=== PATIENT | female | born 1980 | race Caucasian/White ===

== ENCOUNTER 2017-03-22 13:19 | Emergency (ER) | payer OTHER ==
[~2017-03-22 13:19] MED LIST: OMEP20TA39 PO; OXYC1SOL5 PO; PREN0.01 PO; ZOLO20CO PO
[2017-03-22 13:21] VITALS: BP 155/91; PULSE 101; RESP 15; TEMP 98.9; O2SAT 97
[2017-03-22 15:16] LABS: BLOOD, URINE SMALL (NEG); COMMENT (UR) CULT NOT INDICATED; CULTURE IF INDICATED CULT NOT INDICATED; GLUCOSE,URINE NEG (NEG); KETONE, URINE 10 mg/dL (NEG); NITRITE,URINE NEG (NEG); PH, URINE 5.5 (5.0-8.5); URINE COLOR YELLOW (YELLW/STRAW)
[2017-03-22 15:16] LABS: AUTOMATED NEUTROPHIL # 7.3 TH/MM3 (1.8-7.7); BASOPHIL % 0.3 % (0.0-2.0); EOSINOPHIL # 0.2 TH/MM3 (0-0.4); EOSINOPHIL % 1.8 % (0.0-4.0); HEMATOCRIT 42.6 % (35.0-46.0); HEMO FLAGS DIFF FINAL; LYMPH % 22.6 % (9.0-44.0); LYMPHOCYTE # 2.4 TH/MM3 (1.0-4.8); MEAN CELL VOLUME 87.3 FL (80.0-100.0); MEAN CORPUSCULAR HEMOGLOBIN 28.8 PG (27.0-34.0); MEAN CORPUSCULAR HGB CONC 32.9 % (32.0-36.0); MONO % 5.6 % (0.0-8.0); NEUT % 69.7 % (16.0-70.0); PLATELET COUNT 347 TH/MM3 (150-450); RED BLOOD COUNT 4.88 MIL/MM3 (4.00-5.30); RED CELL DISTRIBUTION WIDTH 13.1 % (11.6-17.2); WHITE BLOOD COUNT 10.4 TH/MM3 (4.0-11.0)
[2017-03-22 15:37] LABS: BETA HCG QUANT 10860 MIU/ML (0-5)
--- NOTE | 2017-03-22 17:42 | RADRPT ---
EXAM DATE/TIME: 03/22/2017 16:43 [place] COMPARISON: No previous studies available for comparison. INDICATIONS : Vaginal bleeding. . LAB(S): [facility] MEDICAL HISTORY : . SURGICAL HISTORY : section. ENCOUNTER: Initial ACUITY: 1 day PAIN SCORE: 3/10 LOCATION: Bilateral pelvis MEASUREMENTS: UTERUS: 8.4 x 4.4 x 7.2 cm ENDOMETRIAL STRIPE: 15 mm RIGHT OVARY: 3.8 x 2.0 x 2.7 cm LEFT OVARY: 2.7 x 1.6 x 1.3 cm FREE FLUID: Yes cul-de-sac, right ovary. CROWN RUMP LENGTH: 0.2 cm = 5 WKS 5 DAYS FHR: 98 BPM FINDINGS: Ultrasound of the pelvis via transabdominal transvaginal approach demonstrates a single viable intrau terine with a crown-rump length of 2 small foci in weight with a yolk sac identified corres ponding to less than a 5 week gestation. Cardiac activity is identified at 98 beats per minute. A sma ll amount of fluid is present within the pelvis within the physiologic range. Examination of the right ovary demonstrates no abnormality. Examination of the left ovary demonstrates no abnormality. CONCLUSION: 1. Intrauterine of less than 5 weeks Mao Capps MD on March 22, 2017 at 17:39 Board Certified Radiologist. This report was verified electronically.
--- NOTE | 2017-03-22 18:16 | PD ---
HPI Chief Complaint: Related Problem Time Seen by Provider: 16:12 Travel History International Travel<30 days: No Contact w/Intl Traveler<30days: No Traveled to known affect area: No History of Present Illness HPI 36-year-old female here for evaluation of vaginal bleeding and positive home test. Last LMP 03/01/17. Patient reports vaginal bleeding on 03/15 for 2 days then spontaneously resolved. She is not currently bleeding. She denies abdominal pain or cramping. She had a positive home test today. Patient is O+. She is followed by Dr. Cabezas. At the time she currently has no pain. PFSH Past Medical History Medical History: Denies Significant Hx ?: : 1 Para: 1 Social History Alcohol Use: Yes (on occasion) Tobacco Use: No Substance Use: No Allergies-Medications (Allergen,Severity, Reaction): Coded Allergies: naproxen (Unverified Allergy, Unknown, Nausea/Vomiting, 01/20/17) Reported Meds & Prescriptions Reported Meds & Active Scripts Active Oxycodone/Acetaminophen 5 mg/325 mg 5 mg/325 mg Tab 2 Tab PO Q4H PRN Reported Hm Omeprazole (Omeprazole) 20 Mg Tab 20 Mg PO Vit ( Plus) (Prenat Multivit/[place]/Iron/Folic Ac) Tab 1 Tab PO Zoloft (Sertraline HCl) 20 Mg/Ml Con 25 Mg PO Review of Systems Except as stated in HPI: all other systems reviewed are Neg Physical Exam Narrative GENERAL: Alert well-appearing female in no acute distress SKIN: Warm and dry. HEAD: Normocephalic. EYES: No scleral icterus. No injection or drainage. NECK: Supple, trachea midline. No JVD or lymphadenopathy. CARDIOVASCULAR: Regular rate and rhythm without murmurs, gallops, or rubs. RESPIRATORY: Breath sounds equal bilaterally. No accessory muscle use. GASTROINTESTINAL: Abdomen soft, non-tender, nondistended. Data Data Last Documented VS Orders Orders Urinalysis - C+S If Indicated (03/22/17 14:08) Ed Urine Pregnancytest Poc (03/22/17 14:08) Beta Hcg (Quant/Titer) (03/22/17 14:08) Complete Blood Count With Diff (03/22/17 14:08) Us Pelvis (Ques Pr/Ect)W Trans (03/22/17 ) Ed Discharge Order (03/22/17 18:18) Labs Laboratory Tests Test 03/22/17 14:40 03/22/17 14:45 White Blood Count 10.4 TH/MM3 Red Blood Count 4.88 MIL/MM3 Hemoglobin 14.0 GM/DL Hematocrit 42.6 % Mean Corpuscular Volume 87.3 FL Mean Corpuscular Hemoglobin 28.8 PG Mean Corpuscular Hemoglobin Concent 32.9 % Red Cell Distribution Width 13.1 % Platelet Count 347 TH/MM3 Mean Platelet Volume 8.1 FL Neutrophils (%) (Auto) 69.7 % Lymphocytes (%) (Auto) 22.6 % Monocytes (%) (Auto) 5.6 % Eosinophils (%) (Auto) 1.8 % Basophils (%) (Auto) 0.3 % Neutrophils # (Auto) 7.3 TH/MM3 Lymphocytes # (Auto) 2.4 TH/MM3 Monocytes # (Auto) 0.6 TH/MM3 Eosinophils # (Auto) 0.2 TH/MM3 Basophils # (Auto) 0.0 TH/MM3 CBC Comment DIFF FINAL Differential Comment Human Chorionic Gonadotropin, Quant 44849 MIU/ML Urine Color YELLOW Urine Turbidity CLEAR Urine pH 5.5 Urine Specific [place] 1.017 Urine Protein NEG mg/dL Urine Glucose (UA) NEG mg/dL Urine Ketones 10 mg/dL Urine Occult Blood SMALL Urine Nitrite NEG Urine Bilirubin NEG Urine Urobilinogen LESS THAN 2.0 MG/DL Urine Leukocyte Esterase NEG Urine RBC 1 /hpf Urine WBC LESS THAN 1 /hpf Microscopic Urinalysis Comment CULT NOT INDICATED MDM Medical Decision Making Medical Screen Exam Complete: Yes Emergency Medical Condition: Yes Differential Diagnosis , threatened , ectopic Narrative Course 36-year-old female here for evaluation of vaginal bleeding and positive home test. Last LMP 03/01/17. Patient reports vaginal bleeding on 03/15 for 2 days then spontaneously resolved. She is not currently bleeding. She denies abdominal pain or cramping. She had a positive home test today. Patient is O+. She is followed by Dr. Cabezas. At the time she currently has no pain. Her abdomen is soft and nontender. Pelvic exam was deferred due to patient not actively bleeding at this time. Beta hC Ultrasound: CONCLUSION: 1. Intrauterine of less than 5 weeks Diagnostic findings discussed with patient. She was advised on pelvic rest and to call Dr. Cabezas office tomorrow morning to schedule an appointment. Return precautions discussed. Patient verbalizes understanding and agrees to plan. Diagnosis Primary Impression: Qualified Codes: Z3A.01 - Less than 8 weeks gestation of Additional Impression: Threatened in early Referrals: Radha Cabezas MD Additional Instructions: Pelvic rest. Call Dr. Cabezas's office in the morning to schedule an appointment. Disposition: 01 DISCHARGE HOME Condition: Stable Cherri Ordoñez Mar 22, 2017 18:16
== END 2017-03-22 18:23 | disposition home or self-care (01) ==
LOC: NEPD 13:19
DX: O20.0 Threatened abortion (principal); Z3A.01 Less than 8 weeks gestation of pregnancy
CPT/HCPCS: 76700; 76817; 81001; 84702; 84703; 85025; 99284